=== PATIENT | male | born 1980 | race African-American/Black ===

== ENCOUNTER 2016-12-11 04:22 | Emergency (ER) | payer SELFPAY ==
[~2016-12-11] VITALS: Ht 180.3 cm; Wt 75.0 kg
[~2016-12-11 04:22] MED LIST: ERYT.5%O OU; Z.0.NO CURRENT MEDS
[2016-12-11 04:24] VITALS: BP 130/71; PULSE 71; RESP 16; TEMP 98.7; O2SAT 100
[2016-12-11] MEDS ORDERED: LIDOCAINE HCL 1% 50 ML VIAL IM ONE (08:00)
[2016-12-11] MEDS ORDERED: AZITHROMYCIN PWD FOR SUSP 1 GM PACKET PO ONE (08:00)
[2016-12-11] MEDS ORDERED: ONDANSETRON ODT 4 MG TAB PO ONE (08:00)
[2016-12-11] MEDS ORDERED: metroNIDAZOLE 500 MG TAB PO ONE (08:00)
[2016-12-11] MEDS ORDERED: cefTRIAXone 250 MG VIAL IM ONE (08:00)
[2016-12-11 08:07] LABS: BACTERIA, URINE RARE /hpf; BLOOD, URINE NEG (NEG); CALCIUM OXALATE CRYSTALS,URINE OCC /hpf; COMMENT (UR) CULTURE INDICATED; CULTURE IF INDICATED CULTURE INDICATED; GLUCOSE,URINE NEG (NEG); KETONE, URINE TRACE mg/dL (NEG); MUCUS URINE MANY /lpf (OCC); NITRITE,URINE NEG (NEG); SQUAMOUS EPITHELIAL CELL URINE <1 /hpf (0-5); URINE COLOR YELLOW (YELLW/STRAW)
--- NOTE | 2016-12-11 08:12 | PD ---
HPI Chief Complaint: Complaint Time Seen by Provider: 07:42 Travel History International Travel<30 days: No Contact w/Intl Traveler<30days: No Traveled to known affect area: No History of Present Illness HPI So 36-year-old man who presents emergency department with pain and swelling in his inguinal glands as well as penile discharge and dysuria. Sexually active with women only, 3 partners in the past 6 months. History of STDs. Symptoms ongoing for several days. No rashes or lesions. No other complaints. History Past Medical History Medical History: Denies Significant Hx Past Surgical History Surgical History: No Previous Surgery Social History Alcohol Use: Yes Tobacco Use: Yes (1 PPD) Allergies-Medications (Allergen,Severity, Reaction): Coded Allergies: No Known Allergies (Verified , 10/03/10) Reported Meds & Prescriptions Reported Meds & Active Scripts Active Ilotycin (Erythromycin) 3.5 Gm Oint 1 Dose OU QID Reported No Current Meds (Miscellaneous Medication) Misc Review of Systems Except as stated in HPI: all other systems reviewed are Neg Physical Exam Narrative GENERAL: Well-appearing 36 year-old woman, no acute distress. SKIN: Warm and dry. CARDIOVASCULAR: Warm and well perfused. RESPIRATORY: Normal rate and effort. : Normal male genitalia. Tender Adenopathy, right more than left. No obvious discharge. No rashes or lesions. NEUROLOGICAL: Awake and alert. No gross deficits. Data Data Last Documented VS Vital Signs Date Time Temp Pulse Resp B/P (MAP) Pulse Ox O2 Delivery O2 Flow Rate FiO2 12/11/16 04:24 98.7 71 16 130/71 (90) 100 Orders Orders Urinalysis - C+S If Indicated (12/11/16 07:25) Gc And Chlamydia Pcr (12/11/16 07:25) Azithromycin Powd Pack (Zithromax Powd P (12/11/16 08:00) Ceftriaxone Inj (Rocephin Inj) (12/11/16 08:00) Lidocaine 1% Inj (50 Ml) (Xylocaine 1% I (12/11/16 08:00) Metronidazole (Flagyl) (12/11/16 08:00) Ondansetron Odt (Zofran Odt) (12/11/16 08:00) Labs Laboratory Tests Test 12/11/16 07:30 [facility] Medical Decision Making Medical Screen Exam Complete: Yes Emergency Medical Condition: Yes Differential Diagnosis Urethritis, cystitis, other Narrative Course 36-year-old male with urethritis symptoms. Recommend treatment. 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 Any sexual partners you have should be tested and treated as well. You should not have sex until you have no symptoms, and your partners tested and treated as well. Med/Other Pt SpecificInfo: No Change to Meds Disposition: 01 DISCHARGE HOME Condition: Shailesh Calle MD Dec 11, 2016 08:12
[2016-12-11 12:04] LABS: CHLAMYDIA PCR DETECTED (NOT DETECT); NEISSERIA PCR NOT DETECTED (NOT DETECT)
== END 2016-12-11 08:30 | disposition home or self-care (01) ==
LOC: NEPE 04:22
DX: N34.2 Other urethritis (principal); F17.200 Nicotine dependence, unspecified, uncomplicated
CPT/HCPCS: 81001; 87086; 87491; 87591; 96372; 99284; J0696